=== PATIENT | male | born 1955 | race Caucasian/White ===

== ENCOUNTER 2018-09-28 09:58 | Outpatient (CLI) | payer OTHER ==
[2014-06-22 12:04] VITALS: BMI 28.2
--- NOTE | 2018-09-28 11:25 | CT ---
EXAM: CT of the lumbar spine without contrast History: Lower back pain and weakness. Technique: Multiplanar CT images through the lumbar spine were obtained without the administration o f IV contrast Findings: Atherosclerotic vascular calcifications. Spinal stimulator device is seen. No acute fracture or subluxation of the lumbar spine. Moderate to severe disc space narrowing at L5-S1 with endplate sclerosis, osteophyte formation and vacuum disc. Mild to moderate disc space narrowing seen elsewhere. There is intervertebral disc calcification se en at multiple levels. T12-L1: No significant bony central canal stenosis or bony neural foraminal narrowing. L1-L2: No significant bony central canal stenosis. Mild to moderate bilateral bony neural foraminal narrowing secondary to ligamentous and facet hypertrophy. L2-L3: Prominent disc protrusion effacing anterior thecal sac with moderate central canal stenosis. Moderate to severe left greater than right bilateral bony neural foraminal narrowing secondary to li gamentous and facet hypertrophy. L3-L4: Small disc bulge effacing anterior thecal sac with no significant bony central canal stenosis . Moderate to severe bilateral bony neural foraminal narrowing secondary to ligamentous and facet hy pertrophy. L4-L5: Small disc bulge with no significant central canal stenosis. Mild to moderate bilateral bony neural foraminal narrowing secondary to ligamentous and facet hypertrophy. L5-S1: Small disc bulge with no significant bony central canal stenosis. Severe bilateral bony neur al foraminal narrowing secondary to ligamentous and facet hypertrophy. Impression: 1. No acute osseous abnormality of the lumbar spine. 2. Level by level analysis as detailed above with at least moderate central canal stenosis at L2-3 a nd severe bony neural foraminal narrowing seen bilaterally at L5-S1. Consider correlation with an MR I
== END 2018-09-28 09:59 | disposition home or self-care (01) ==
LOC: RAD 09:58
PROVIDERS: ATTEND Nurse Practitioner
DX: M54.42 Lumbago with sciatica, left side (principal); M54.41 Lumbago with sciatica, right side; G89.29 Other chronic pain